=== PATIENT | female | born 1990 ===

== ENCOUNTER 2017-04-19 22:13 | Emergency (ER) | payer OTHER ==
[2017-04-19 22:19] VITALS: RESP 16; TEMP 98.2; O2SAT 100
[2017-04-19] MEDS ORDERED: DiphenhydrAMINE 50 mg/ml Inj IV STA (22:26)
--- NOTE | 2017-04-19 22:51 | ED PDOC ---
HPI: Allergic Reaction Time Seen by Provider: 04/19/17 22:18 Chief Complaint (Nursing): Allergic Reaction Chief Complaint (Provider): Allergic Reaction History Per: Patient History/Exam Limitations: no limitations Onset/Duration Of Symptoms: Mins (just prior to arrival), Sudden Onset Current Symptoms Are (Timing): Still Present Context: Food Possible Cause: Food (macaroni and cheese), Seasonal Allergies, Other (exposure to pets and dust) Associated Symptoms: Skin Rash (face and b/l arms), Trouble Swallowing (throat tightness), Itching (pruritic rash), Redness, Other (nausea, epigastric discomfort) Home/EMS Treatment: Other (Nicolasa, eye drops) Severity: Moderate Additional Complaint(s): Chelo Colindres is a 27 year old female, with no pertinent past medical history, who presents to the emergency department for the evaluation of an allergic reaction, that the patient began to experience just prior to arrival. Patient states eating macaroni and cheese one hour ago. Afterwards, she took a shower and cleaned her face with a towel that was washed earlier today and suddenly began to feel a pruritic sensation that developed hives to both of her arms. Patient reports taking Nicolasa and eye drops without relief. Associated nausea, throat tightness, and epigastric discomfort are currently present. Of note, patient has had seasonal allergies in the past. PMD: none specified Past Medical History Reviewed: Historical Data, Nursing Documentation, Vital Signs Vital Signs: Last Vital Signs Temp 98.2 F 04/19/17 22:15 Pulse 87 04/19/17 22:15 Resp 16 04/19/17 22:15 BP 136/87 04/19/17 22:15 Pulse Ox 100 04/19/17 22:15 - Medical History PMH: No Chronic Diseases - Surgical History Surgical History: No Surg Hx - Family History Family History: States: No Known Family Hx - Allergies Allergies/Adverse Reactions: Allergies Allergy/AdvReac Type Severity Reaction Status Date / Time No Known Allergies Allergy Verified 04/19/17 22:15 Review of Systems ROS Statement: Except As Marked, All Systems Reviewed And Found Negative ENT: Positive for: Throat Swelling (throat tightness) Gastrointestinal: Positive for: Nausea, Abdominal Pain (epigastric discomfort) Skin: Positive for: Rash (face and b/l arms, pruritic sensation) Physical Exam - Reviewed Nursing Documentation Reviewed: Yes Vital Signs Reviewed: Yes - Physical Exam Appears: Positive for: Non-toxic, No Acute Distress. Negative for: Uncomfortable Head Exam: Positive for: ATRAUMATIC, NORMAL INSPECTION (mild redness on face), NORMOCEPHALIC Skin: Positive for: Warm, Rash (urticarial, hives) Eye Exam: Positive for: Normal appearance, EOMI, PERRL, Periorbital swelling ENT: Positive for: Normal ENT Inspection. Negative for: Pharyngeal Erythema, Tonsillar Exudate, Tonsillar Swelling, Other (tongue or lip edema) Neck: Positive for: Normal, Painless ROM, Supple Cardiovascular/Chest: Positive for: Regular Rate, Rhythm. Negative for: Murmur Respiratory: Positive for: Normal Breath Sounds. Negative for: Wheezing, Respiratory Distress Gastrointestinal/Abdominal: Positive for: Normal Exam, Soft. Negative for: Tenderness, Guarding, Rebound Extremity: Positive for: Normal ROM, Other (isolated small number of hives to b/ l upper extremities). Negative for: Tenderness, Swelling Neurologic/Psych: Positive for: Alert, Oriented. Negative for: Motor/Sensory Deficits - Laboratory Results Result Diagrams: 04/20/17 01:10 04/20/17 01:10 - ECG O2 Sat by Pulse Oximetry: 100 (RA) Pulse Ox Interpretation: Normal Disposition - Clinical Impression Clinical Impression: Allergic reaction, Abdominal pain - Patient ED Disposition Is Patient to be Admitted: No Doctor Will See Patient In The: Office Counseled Patient/Family Regarding: Studies Performed, Diagnosis, Need For Followup - Disposition Referrals: [facility] [Outside] Disposition: Routine/Home Disposition Time: 04:26 Condition: FAIR Additional Instructions: Follow up with your PCP in 2-3 days. Return for worsening. Instructions: Urticaria (ED), Abdominal Pain (ED) - POA Present On Arrival: None Medical Decision Making Medical Decision Makin:18 Initial Impression: Allergic reaction, urticaria Differential Diagnoses include, but are not limited to an anaphylactic reaction. Initial Plan: * Benadryl 50 mg IV * Pepcid 20 mg IVP * SOLU-Medrol 125 mg IVP * Reevaluation Scribe Attestation: Documented by Delfino Silva, acting as a scribe for Shante King MD. Provider Scribe Attestation: All medical record entries made by the Scribe were at my direction and personally dictated by me. I have reviewed the chart and agree that the record accurately reflects my personal performance of the history, physical exam, medical decision making, and the department course for this patient. I have also personally directed, reviewed, and agree with the discharge instructions and disposition.
[2017-04-20] MEDS ORDERED: Sodium Chloride 0.9% 1,000 ML IV STA (00:57)
[2017-04-20 01:15] LABS: BASO % 0.5 % (0.0-2.0); EOS # 0.2 K/uL (0.0-0.7); EOS % 2.7 % (0.0-4.0); LYMPH # 2.2 K/uL (1.0-4.3); LYMPH % 28.2 % (20.0-40.0); MEAN CELL VOLUME 84.3 fl (81.0-99.0); MEAN CORPUSCULAR HEMOGLOBIN 27.4 pg (27.0-31.0); MEAN CORPUSCULAR HGB CONC 32.5 g/dL (33.0-37.0); MEAN PLATELET VOLUME 8.2 fl (7.2-11.7); MONO # 0.5 K/uL (0.0-0.8); MONO % 6.9 % (0.0-10.0); NEUT # 4.9 K/uL (1.8-7.0); NEUT % 61.7 % (50.0-75.0); NRBC % 0.1 % (0.0-0.0); RED CELL DISTRIBUTION WIDTH 14.2 % (11.5-14.5); WHITE BLOOD COUNT 7.9 K/uL (4.8-10.8)
[2017-04-20 01:23] LABS: ALB/GLOB RATIO 1.6 (1.0-2.1); ALKALINE PHOSPHATASE 53 U/L (38-126); ALT/SGPT 30 U/L (9-52); AST/SGOT 33 U/L (14-36); BILIRUBIN,TOTAL 0.4 mg/dl (0.2-1.3); BLOOD UREA NITROGEN 17 mg/dl (7-17); CALCIUM 9.8 mg/dL (8.4-10.2); CARBON DIOXIDE 22 mmol/L (22-30); CHLORIDE 102 mmol/L (98-107); GFR AFRICAN-AMERICAN > 60; GLUCOSE,RANDOM 72 mg/dL (65-105); LIPASE 168 U/L (23-300); POTASSIUM 3.7 MMOL/L (3.6-5.0); SODIUM 137 mmol/l (132-148); TOTAL PROTEIN 7.6 G/DL (6.3-8.2)
[2017-04-20 04:50] VITALS: BP 116/79; PULSE 81
== END 2017-04-20 04:50 | disposition home or self-care (01) ==
LOC: H.ER 22:13
DX: T78.40XA Allergy, unspecified, initial encounter (principal); L50.0 Allergic urticaria; R10.9 Unspecified abdominal pain; R11.0 Nausea